=== PATIENT | female | born 1975 | race Caucasian/White ===

== ENCOUNTER 2016-10-30 15:58 | Inpatient (IN) | payer OTHER ==
[~2016-10-30] VITALS: Ht 167.6 cm; Wt 138.0 kg
[2016-10-30 18:30] VITALS: BP 128/82
[2016-10-30] MEDS ORDERED: LAMICTAL100 MG PO (19:10)
[2016-10-30] MEDS ORDERED: LAMICTAL25 MG PO (19:48)
[2016-10-30] MEDS ORDERED: SEROQUEL50 MG PO (19:52)
[2016-10-31 07:49] VITALS: BP 106/60
[2016-10-31 15:41] VITALS: BP 121/72
[2016-11-01 08:35] VITALS: BP 104/71
[2016-11-01 15:45] VITALS: BP 103/64
[2016-11-02 07:11] VITALS: BP 103/67
[2016-11-02] MEDS ORDERED: SEROQUEL50 MG PO (09:15)
[2016-11-02] MEDS ORDERED: PRAZOSIN HCL1 MG PO (09:15)
[2016-11-02] MEDS ORDERED: LAMICTAL200 MG PO (09:15)
[2016-11-02] MEDS ORDERED: HYDROXYZINE PAM50 MG PO (15:25)
[2016-11-02 15:34] VITALS: BP 107/62
== END 2016-11-02 18:15 | disposition home or self-care (01) | DRG 885 ==
LOC: 1WEST 15:58 → ENRESERV 16:03 → 1WEST 18:26
DX: F33.2 Major depressive disorder, recurrent severe without psychotic features (principal); F43.12 Post-traumatic stress disorder, chronic; F60.3 Borderline personality disorder; R45.851 Suicidal ideations; G40.209 Localization-related (focal) (partial) symptomatic epilepsy and epileptic syndromes with complex partial seizures, not intractable, without status epilepticus; K21.9 Gastro-esophageal reflux disease without esophagitis; Z85.41 Personal history of malignant neoplasm of cervix uteri; Z91.14 Patient's other noncompliance with medication regimen; Z91.5 Personal history of self-harm
CPT/HCPCS: 97150 GO; Q0177